=== PATIENT | male | born 1975 | race Caucasian/White ===

== ENCOUNTER 2022-04-13 20:44 | Emergency (ER) | payer SELFPAY ==
--- NOTE | ~2022-04-13 | XR_ITS ---
EXAMINATION: XR finger 1st LT min 2V DATE: 04/13/2022 21:10 INDICATION: Left thumb laceration. TECHNIQUE: 4 views of left thumb were obtained. COMPARISON: None. FINDINGS: Bone alignment is normal. No fracture. There is mild osteoarthritis of first carpometacarpa l joint and first metacarpophalangeal joint. There are small calcifications near first metacarpophala ngeal joint. IMPRESSION: 1. No fracture or radiopaque foreign body. Reviewed, dictated and finalized at location A. APPLICATIONS COORDINATOR
[2022-04-13 20:46] VITALS: BP 174/67; PULSE 77; RESP 16; TEMP 37; O2SAT 99
--- NOTE | 2022-04-13 22:06 | ED.WOUNDLAC ---
HPI - Wound/Laceration General Chief Complaint: Wound/Laceration Stated Complaint: lacertion to thumb Time Seen by Provider: 04/13/22 21:13 Source: patient Mode of arrival: ambulatory Limitations: no limitations History of Present Illness HPI narrative: Patient is a 46-year-old male who presents ED with report of a laceration to his left thumb. Patient reports he was woodworking tonight and trimming a piece of wood with a razor blade when he accidentally slipped and cut his left outer thumb. Denies any other injury. No nail involvement. Denies numbness, tingling. Tetanus status up-to-date as of 6 months ago. Related Data Allergies Allergy/AdvReac Type Severity Reaction Status Date / Time No Known Allergies Allergy Verified 04/13/22 20:48 Review of Systems Review of Systems: CONSTITUTIONAL: Denies fever, chills, or sweats. SKIN: See HPI. NEUROLOGIC: Denies tingling, numbness, or weakness. All systems reviewed & are unremarkable except as noted in HPI and below PMFSH Past Medical History Medical History (Updated 04/13/22 @ 23:03 by Angelika Tapia PA-C) No pertinent past medical history Surgical History Surgical History (Updated 04/13/22 @ 23:03 by Angelika Tapia PA-C) No pertinent past surgical history Social History Social History (Updated 04/13/22 @ 23:03 by Angelika Tapia PA-C) Smoking status: Never smoker Exam Narrative: GENERAL: Well appearing, well-nourished, non-toxic, in no acute distress. HEAD: Normocephalic, atraumatic. NECK: Supple. No adenopathy, no masses. RESPIRATORY: Airway patent, respirations nonlabored. CARDIOVASCULAR: Regular rate and rhythm without murmurs, rubs, or gallops. Radial pulses 2+ and equal bilaterally. MUSCULOSKELETAL: Moves all extremities. Strength/ROM intact without gross deformities. Approx 3cm flap laceration to lateral edge of L thumb over area of proximal phalange, no active bleeding. Normal range of motion of L thumb, no limitations in opposition, flexion, abduction. Sensation intact. Good capillary refill. Old injury to left thumb with nail partially avulsed. SKIN: Warm, dry, normal color. No rashes. NEURO: A&O X3. Speech clear. Cranial nerves II-XII grossly intact. Steady gait. No ataxic movements. PSYCHIATRIC: Appropriate mood and affect. Normal interaction. Course Vital Signs Vital signs: Vital Signs Temperature 98.6 F 04/13/22 20:46 Pulse Rate 77 04/13/22 20:46 Respiratory Rate 16 04/13/22 20:46 Blood Pressure 174/67 H 04/13/22 20:46 Pulse Oximetry 99 04/13/22 20:46 Temperature 98.6 F 04/13/22 20:46 Pulse Rate 77 04/13/22 20:46 Respiratory Rate 16 04/13/22 20:46 Blood Pressure 174/67 H 04/13/22 20:46 Pulse Oximetry 99 04/13/22 20:46 Procedures Laceration Laceration 1: Date: 04/13/22 Time: 22:25 Site: hand (thumb) Side (If applicable): left Size (cm): 3 Description: flap and clean Depth: simple, single layer Local Anesthetic: other anesthetic (digital block) Pre-repair: wound explored and irrigated ====== Skin Level ====== Skin layer closed with: nylon Size (cm): 5-0 Number of sutures: 7 Technique: simple, interrupted ====== Subcutaneous Layer ====== ====== Muscle Layer ====== ====== Tendon Layer ====== Nerve Block Nerve Block 1: Nerve block date: 04/13/22 Nerve block time: 22:20 Time out performed: Yes Local Anesthetic: lidocaine 1% Amount of anesthesia used (mL): 4 Side: left Nerve Blocks: digital (thumb) Procedure Successful: Yes Patient Tolerated Procedure: well and no complications Complications: none MDM - Wound/Laceration MDM Narrative Medical decision making narrative: X-ray without signs of foreign body or fracture. Digital nerve block performed with adequate anesthesia. Laceration repaired without c
[2022-04-13 23:10] VITALS: BP 164/86; PULSE 86; RESP 16; O2SAT 98
== END 2022-04-13 23:15 | disposition home or self-care (01) ==
PROVIDERS: Emergency Provider Physician Assistant
DX: S61.012A Laceration without foreign body of left thumb without damage to nail, initial encounter (principal); W27.8XXA Contact with other nonpowered hand tool, initial encounter
CPT/HCPCS: 12002; 73140; 99283